=== PATIENT | female | born 1945 | race African-American/Black ===

== ENCOUNTER 2021-12-28 05:31 | Inpatient (IN) | payer MEDICARE, OTHER ==
[2021-12-28] VITALS (9 sets, daily range): BP systolic 150–181; BP diastolic 50–112
[~2021-12-28] VITALS: Ht 172.7 cm; Wt 92.6 kg
[2021-12-28] MEDS ORDERED: NITROGLYCERIN 0.4 MG SL TAB SL ONE ×2 (05:41→06:00)
[2021-12-28 06:43] LABS: Basophils # (auto) 0.1 10 ^3/uL (0-0.2); Basophils % (auto) 0.5 % (0.0-2.0); Eosinophils # (auto) 0.2 10 ^3/uL (0-0.8); Eosinophils % (auto) 1.7 % (0.0-7.0); Hematocrit 36.4 % (36.0-46.0); Hemoglobin 11.6 g/dL (12.2-16.2); Lymphocytes # (auto) 4.7 10 ^3/uL (0.4-5.4); Lymphocytes % (auto) 44.6 % (10.0-50.0); Mean Corpuscular Hemoglobin 27.4 pg (28.0-32.0); Mean Corpuscular Volume 85.5 fL (80.0-100.0); Monocytes # (auto) 0.6 10 ^3/uL (0-1.3); Neutrophils % (auto) 47.2 % (37.0-80.0); Nucleated Red Blood Cells % 0.1 %; Red Blood Cells 4.25 10^6/uL (4.0-5.20); Red Cell Distribution Width 17.4 % (11.8-14.3); White Blood Cell 10.6 10^3/uL (4.4-10.8)
[2021-12-28 07:03] LABS: Albumin 3.5 g/dL (3.4-5.0); Calcium 8.8 mg/dL (8.5-10.1); Magnesium 2.9 mg/dL (1.6-2.6); Potassium 4.2 mmol/L (3.5-5.1)
[2021-12-28 07:04] LABS: INR 1.32 (0.9-1.15); Partial Thromboplastin Time 29.1 sec (23.6-33.0)
[2021-12-28 07:06] LABS: BUN/Creatinine Ratio 16.3; Bilirubin, Total 0.5 mg/dL (0.2-1.0); Total Protein 7.9 g/dL (6.4-8.2)
[2021-12-28] MEDS ORDERED: MORPHINE SULFATE INJ 2 MG/ml SYRG IV PRN ×3 (13:30→17:30)
[2021-12-28] MEDS ORDERED: DEXTROSE (50%) 50ML SYRG IV PRN (13:30)
[2021-12-28] MEDS ORDERED: NITROGLYCERIN 0.4 MG SL TAB SL PRN ×2 (13:30→17:30)
[2021-12-28] MEDS ORDERED: HYDROcodone-ACET 5/325MG TAB PO PRN (15:00)
[2021-12-28] MEDS ORDERED: ONDANSETRON HCL 4 MG/2 ML VIAL IV PRN (15:00)
[2021-12-28] MEDS ORDERED: DOCUSATE SOD 100 MG CAP PO PRN (15:00)
[2021-12-28] MEDS ORDERED: FAMOTIDINE (10MG/ML) 2ML VL IV ONE (15:00)
[2021-12-28] MEDS ORDERED: LORazepam 0.5 MG TAB PO PRN (15:00)
[2021-12-28] MEDS ORDERED: METOPROLOL SUCCINATE XL 50 MG TAB PO ONE (16:15)
[2021-12-28] MEDS: hydrALAZINE HCL 20 MG/ML VL IV PRN (16:37)
[2021-12-28 17:17] LABS: Magnesium 2.7 mg/dL (1.6-2.6); Phosphorus 5.8 mg/dL (2.5-4.90)
[2021-12-28] MEDS: CEFEPIME 2 GM in SODIUM CHL 0.9% 50 ML IV SCH (17:26)
[2021-12-28] MEDS: ACCU-CHEK COMFORT CURVE STRIP VI SCH (17:26)
[2021-12-28] MEDS ORDERED: HEPARIN SODIUM (PORCINE) 5000 UNITS/ML 1ML VIAL IV ONE (17:30)
[2021-12-28] MEDS ORDERED: RIVAROXABAN 15 MG TAB PO SCH (18:00)
[2021-12-28] MEDS: FUROSEMIDE 20 MG/2 ML VIAL IV SCH (18:01)
[2021-12-28] MEDS: HEPARIN DRIP/D5W 100UNITS/ML 250 ML IV SCH (18:05)
[2021-12-28] MEDS: InsuLIN REG 1unit/0.01ml Soln (100units/ml) SC SCH ×2 (18:06→22:00)
[2021-12-28] MEDS ORDERED: ISOS20TA5 PO (18:29)
[2021-12-28] MEDS ORDERED: ACET325T10 PO (18:29)
[2021-12-28] MEDS ORDERED: FURO40TA4 PO (18:29)
[2021-12-28] MEDS ORDERED: SITA100T7 PO (18:29)
[2021-12-28] MEDS ORDERED: ENAL20TA8 PO (18:29)
[2021-12-28] MEDS ORDERED: POTA-167 PO (18:29)
[2021-12-28] MEDS ORDERED: METO1TAB9 PO (18:29)
[2021-12-28] MEDS ORDERED: BENZ100C97 PO (18:29)
[2021-12-28] MEDS ORDERED: IPRATROPIUM BROM 0.5 MG/2.5ML INH SOL NEB SCH (22:45)
[2021-12-28] MEDS ORDERED: LEVALBUTEROL HCL 1.25 MG/3 ML NEB NEB SCH (22:45)
[2021-12-28 23:33] LABS: Urine Bacteria NONE SEEN /hpf (None Seen); Urine Blood 1+ /uL (Negative); Urine Specific Gravity 1.013 (1.001-1.035); Urine WBC 1032 /hpf (0 - 5); Urine WBC Clumps PRESENT /hpf (None Seen)
[2021-12-29] VITALS (14 sets, daily range): BP systolic 93–152; BP diastolic 43–69
[2021-12-29] MEDS: hydrALAZINE HCL 25 MG TAB PO SCH ×3 (00:21→22:00)
[2021-12-29] MEDS: AMIODARONE HCL 200 MG TAB PO SCH ×3 (00:22→22:34)
[2021-12-29] MEDS: ISOSORBIDE MONONITRATE 20 MG TAB PO SCH ×3 (00:24→22:00)
[2021-12-29] MEDS: ACCU-CHEK COMFORT CURVE STRIP VI SCH ×5 (00:25→22:36)
[2021-12-29] MEDS: ACETAMINOPHEN 500 MG TAB PO PRN (00:27)
[2021-12-29 02:48] LABS: INR 1.24 (0.9-1.15)
[2021-12-29 02:53] LABS: Partial Thromboplastin Time > 139.0 sec (23.6-33.0)
[2021-12-29] MEDS: HEPARIN DRIP/D5W 100UNITS/ML 250 ML IV SCH (04:02)
[2021-12-29 05:47] LABS: Basophils # (auto) 0 10 ^3/uL (0-0.2); Basophils % (auto) 0.6 % (0.0-2.0); Eosinophils # (auto) 0.1 10 ^3/uL (0-0.8); Eosinophils % (auto) 0.8 % (0.0-7.0); Hematocrit 30.7 % (36.0-46.0); Hemoglobin 10.1 g/dL (12.2-16.2); Lymphocytes # (auto) 1.7 10 ^3/uL (0.4-5.4); Lymphocytes % (auto) 21.4 % (10.0-50.0); Mean Corpuscular Hemoglobin 27.1 pg (28.0-32.0); Mean Corpuscular Hgb Conc. 32.7 g/dL (32.0-36.0); Mean Corpuscular Volume 82.9 fL (80.0-100.0); Monocytes # (auto) 0.8 10 ^3/uL (0-1.3); Monocytes % (auto) 10.1 % (0.0-12.0); Neutrophils # (auto) 5.2 10 ^3/uL (1.6-8.6); Neutrophils % (auto) 67.1 % (37.0-80.0); Nucleated Red Blood Cells % 0.1 %; Red Blood Cells 3.71 10^6/uL (4.0-5.20); Red Cell Distribution Width 17.5 % (11.8-14.3); White Blood Cell 7.7 10^3/uL (4.4-10.8)
[2021-12-29] MEDS: FUROSEMIDE 20 MG/2 ML VIAL IV SCH ×2 (06:00→17:37)
[2021-12-29 06:10] LABS: Calcium 8.7 mg/dL (8.5-10.1); Magnesium 2.4 mg/dL (1.6-2.6); Potassium 3.7 mmol/L (3.5-5.1); Uric Acid 6.3 mg/dL (2.6-6.0)
[2021-12-29 06:19] LABS: BUN/Creatinine Ratio 18.3; Bilirubin, Total 0.6 mg/dL (0.2-1.0); CRP High Sensitivity 5.02 mg/dL (< 0.3); Phosphorus 3.9 mg/dL (2.5-4.90); Total Protein 6.6 g/dL (6.4-8.2)
[2021-12-29] MEDS: InsuLIN REG 1unit/0.01ml Soln (100units/ml) SC SCH ×4 (07:00→22:00)
[2021-12-29] MEDS: CEFEPIME 2 GM in SODIUM CHL 0.9% 50 ML IV SCH ×2 (08:28→17:37)
[2021-12-29] MEDS: FAMOTIDINE (10MG/ML) 2ML VL IV SCH (09:55)
[2021-12-29] MEDS: ASPirin 81 mg TAB PO SCH (09:55)
[2021-12-29] MEDS: METOPROLOL SUCCINATE XL 50 MG TAB PO SCH (09:57)
[2021-12-29] MEDS ORDERED: ENOXAPARIN SOD 40 MG/0.4 ML SYRINGE SC SCH (10:00)
[2021-12-29 11:34] LABS: INR 1.21 (0.9-1.15)
[2021-12-29 11:39] LABS: Partial Thromboplastin Time > 139.0 sec (23.6-33.0)
[2021-12-29] MEDS ORDERED: ENOXAPARIN SOD 100 MG/1 ML SYRINGE SC ONE ×2 (12:16→12:45)
[2021-12-29 15:22] LABS: Alcohol, Urine < 3.0 mg/dL (0-10); Amphetamine Screen, Urine NEGATIVE (NEGATIVE); Barbiturate Scree,Urine NEGATIVE (NEGATIVE); Benzodiazephine Screen, Urine NEGATIVE (NEGATIVE); Cannabinoid Screen, Urine NEGATIVE (NEGATIVE); Cocaine Screen, Urine NEGATIVE (NEGATIVE); Opiate Scree,Urine NEGATIVE (NEGATIVE); Phencyclidine Screen, Urine NEGATIVE (NEGATIVE)
[2021-12-29] MEDS ORDERED: IOHEXOL 350 MG/ML 100ML IJ ONE (16:31)
[2021-12-29] MEDS: IPRATROPIUM BROM 0.5 MG/2.5ML INH SOL NEB PRN (18:41)
[2021-12-29] MEDS: LEVALBUTEROL HCL 1.25 MG/3 ML NEB NEB PRN (18:41)
[2021-12-29] MEDS: ENOXAPARIN SOD 100 MG/1 ML SYRINGE SC SCH (23:00)
[2021-12-30] VITALS (11 sets, daily range): BP systolic 114–137; BP diastolic 41–61
[2021-12-30] MEDS: CEFEPIME 2 GM in SODIUM CHL 0.9% 50 ML IV SCH ×2 (04:27→16:27)
[2021-12-30 05:01] LABS: Basophils # (auto) 0.1 10 ^3/uL (0-0.2); Basophils % (auto) 0.7 % (0.0-2.0); Eosinophils # (auto) 0.1 10 ^3/uL (0-0.8); Hematocrit 28.3 % (36.0-46.0); Hemoglobin 9.3 g/dL (12.2-16.2); Lymphocytes # (auto) 1.7 10 ^3/uL (0.4-5.4); Lymphocytes % (auto) 23.4 % (10.0-50.0); Mean Corpuscular Hemoglobin 27.2 pg (28.0-32.0); Mean Corpuscular Hgb Conc. 32.8 g/dL (32.0-36.0); Mean Corpuscular Volume 82.8 fL (80.0-100.0); Monocytes # (auto) 0.8 10 ^3/uL (0-1.3); Monocytes % (auto) 10.9 % (0.0-12.0); Neutrophils # (auto) 4.6 10 ^3/uL (1.6-8.6); Nucleated Red Blood Cells % 0.2 %; Red Blood Cells 3.41 10^6/uL (4.0-5.20); Red Cell Distribution Width 17.3 % (11.8-14.3); White Blood Cell 7.3 10^3/uL (4.4-10.8)
[2021-12-30 05:17] LABS: INR 1.16 (0.9-1.15); Partial Thromboplastin Time 44.3 sec (23.6-33.0)
[2021-12-30 05:19] LABS: Albumin 2.7 g/dL (3.4-5.0); BUN/Creatinine Ratio 17.5; Calcium 8.7 mg/dL (8.5-10.1); Magnesium 2.7 mg/dL (1.6-2.6); Potassium 4.1 mmol/L (3.5-5.1)
[2021-12-30 05:22] LABS: Bilirubin, Total 0.5 mg/dL (0.2-1.0); Phosphorus 3.9 mg/dL (2.5-4.90); Total Protein 6.4 g/dL (6.4-8.2)
[2021-12-30] MEDS ORDERED: FUROSEMIDE 40 MG/4 ML VIAL IV SCH (06:00)
[2021-12-30] MEDS: ACCU-CHEK COMFORT CURVE STRIP VI SCH ×4 (06:22→22:00)
[2021-12-30] MEDS: InsuLIN REG 1unit/0.01ml Soln (100units/ml) SC SCH ×4 (06:22→22:00)
[2021-12-30] MEDS: METOPROLOL SUCCINATE XL 50 MG TAB PO SCH (09:51)
[2021-12-30] MEDS: hydrALAZINE HCL 25 MG TAB PO SCH ×2 (09:52→22:00)
[2021-12-30] MEDS: ASPirin 81 mg TAB PO SCH (09:52)
[2021-12-30] MEDS: ISOSORBIDE MONONITRATE 20 MG TAB PO SCH ×2 (09:53→23:16)
[2021-12-30] MEDS: FAMOTIDINE (10MG/ML) 2ML VL IV SCH (09:53)
[2021-12-30] MEDS: LOSARTAN POTASSIUM 50 MG TAB PO SCH (09:54)
[2021-12-30] MEDS: AMIODARONE HCL 200 MG TAB PO SCH (09:55)
[2021-12-30] MEDS: ENOXAPARIN SOD 100 MG/1 ML SYRINGE SC SCH ×2 (09:55→23:16)
[2021-12-30] MEDS ORDERED: FLUCONAZOLE 200MG/100ML 100 ML IV ONE (15:45)
[2021-12-30] MEDS: ACETAMINOPHEN 500 MG TAB PO PRN (22:00)
[2021-12-31] VITALS (8 sets, daily range): BP systolic 112–150; BP diastolic 52–58
[2021-12-31 05:24] LABS: Hematocrit 26.9 % (36.0-46.0); Hemoglobin 8.9 g/dL (12.2-16.2)
[2021-12-31 05:39] LABS: INR 1.12 (0.9-1.15)
[2021-12-31 05:49] LABS: BUN/Creatinine Ratio 21.6; Calcium 8.8 mg/dL (8.5-10.1); Magnesium 2.6 mg/dL (1.6-2.6); Potassium 3.8 mmol/L (3.5-5.1)
[2021-12-31] MEDS: ACCU-CHEK COMFORT CURVE STRIP VI SCH ×4 (07:00→22:00)
[2021-12-31] MEDS: InsuLIN REG 1unit/0.01ml Soln (100units/ml) SC SCH ×4 (07:00→22:53)
[2021-12-31 07:59] LABS: % Iron Saturation 7.8 % (15-50)
[2021-12-31] MEDS: CEFEPIME 2 GM in SODIUM CHL 0.9% 50 ML IV SCH (08:00)
[2021-12-31] MEDS: FLUCONAZOLE 200MG/100ML 100 ML IV SCH (09:33)
[2021-12-31] MEDS: METOPROLOL SUCCINATE XL 50 MG TAB PO SCH (09:33)
[2021-12-31] MEDS: hydrALAZINE HCL 25 MG TAB PO SCH (09:34)
[2021-12-31] MEDS: ISOSORBIDE MONONITRATE 20 MG TAB PO SCH ×2 (09:36→22:36)
[2021-12-31] MEDS: ASPirin 81 mg TAB PO SCH (09:36)
[2021-12-31] MEDS: FAMOTIDINE (10MG/ML) 2ML VL IV SCH (09:37)
[2021-12-31] MEDS: FUROSEMIDE 40 MG/4 ML VIAL IV SCH (09:37)
[2021-12-31] MEDS: LOSARTAN POTASSIUM 50 MG TAB PO SCH (09:37)
[2021-12-31] MEDS: ENOXAPARIN SOD 100 MG/1 ML SYRINGE SC SCH ×2 (09:38→22:31)
[2021-12-31] MEDS ORDERED: methylPREDNISolone SOD SUCC 40 MG/ML VL IV ONE (14:30)
[2021-12-31] MEDS ORDERED: ERGOCALCIFEROL 50,000 UNIT(1.25MG) CAP PO SCH (15:00)
[2021-12-31] MEDS: methylPREDNISolone SOD SUCC 40 MG/ML VL IV SCH (22:34)
[2022-01-01 05:50] VITALS: BP 144/59
[2022-01-01] MEDS: ACCU-CHEK COMFORT CURVE STRIP VI SCH ×4 (07:00→22:17)
[2022-01-01] MEDS: InsuLIN REG 1unit/0.01ml Soln (100units/ml) SC SCH ×4 (07:00→22:39)
[2022-01-01 08:45] LABS: Basophils # (auto) 0 10 ^3/uL (0-0.2); Eosinophils # (auto) 0 10 ^3/uL (0-0.8); Hematocrit 29.7 % (36.0-46.0); Lymphocytes # (auto) 0.4 10 ^3/uL (0.4-5.4); Lymphocytes % (auto) 9.3 % (10.0-50.0); Mean Corpuscular Hemoglobin 27.2 pg (28.0-32.0); Mean Corpuscular Hgb Conc. 32.6 g/dL (32.0-36.0); Mean Corpuscular Volume 83.4 fL (80.0-100.0); Monocytes # (auto) 0.2 10 ^3/uL (0-1.3); Monocytes % (auto) 3.9 % (0.0-12.0); Neutrophils # (auto) 4.1 10 ^3/uL (1.6-8.6); Neutrophils % (auto) 85.8 % (37.0-80.0); Nucleated Red Blood Cells % 0.1 %; Red Blood Cells 3.56 10^6/uL (4.0-5.20); Red Cell Distribution Width 17.4 % (11.8-14.3); White Blood Cell 4.8 10^3/uL (4.4-10.8)
[2022-01-01 08:51] LABS: Hemoglobin 9.7 g/dL (12.2-16.2)
[2022-01-01 08:54] LABS: BUN/Creatinine Ratio 28.8; Calcium 9.5 mg/dL (8.5-10.1); Potassium 4.4 mmol/L (3.5-5.1)
[2022-01-01] MEDS ORDERED: LACTULOSE 20Gm/30ML SOLN PO ONE (11:00)
[2022-01-01] MEDS: FLUCONAZOLE 200MG/100ML 100 ML IV SCH (11:00)
[2022-01-01] MEDS: cefTRIAXone 1GM/50ML D5W 50 ML IV SCH (11:00)
[2022-01-01] MEDS: FUROSEMIDE 40 MG/4 ML VIAL IV SCH (11:02)
[2022-01-01] MEDS: FAMOTIDINE (10MG/ML) 2ML VL IV SCH (11:02)
[2022-01-01] MEDS: methylPREDNISolone SOD SUCC 40 MG/ML VL IV SCH ×2 (11:02→22:15)
[2022-01-01] MEDS: AZITHROMYCIN 500MG/ 250ML 250 ML IV SCH (11:03)
[2022-01-01] MEDS: METOPROLOL SUCCINATE XL 50 MG TAB PO SCH (11:03)
[2022-01-01] MEDS: ENOXAPARIN SOD 100 MG/1 ML SYRINGE SC SCH ×2 (11:08→22:17)
[2022-01-01] MEDS: LOSARTAN POTASSIUM 50 MG TAB PO SCH (11:08)
[2022-01-01] MEDS: ISOSORBIDE MONONITRATE 20 MG TAB PO SCH ×2 (11:41→22:16)
[2022-01-01] MEDS ORDERED: LACTULOSE 20Gm/30ML SOLN PO PRN (12:00)
[2022-01-01 13:00] VITALS: BP 143/54
[2022-01-01 17:00] VITALS: BP 141/50
[2022-01-01 22:00] VITALS: BP 163/66
[2022-01-01] MEDS: DOCUSATE SOD 100 MG CAP PO SCH (22:15)
[2022-01-01] MEDS: ENALAPRIL MALEATE 10 MG TAB PO SCH (22:16)
[2022-01-02 05:00] VITALS: BP 134/48
[2022-01-02] MEDS: ACCU-CHEK COMFORT CURVE STRIP VI SCH ×4 (05:56→21:19)
[2022-01-02] MEDS: InsuLIN REG 1unit/0.01ml Soln (100units/ml) SC SCH ×4 (06:01→21:25)
[2022-01-02 07:15] LABS: BUN/Creatinine Ratio 30.3; Calcium 9.4 mg/dL (8.5-10.1); Potassium 5.2 mmol/L (3.5-5.1)
[2022-01-02 07:36] LABS: Hematocrit 29.1 % (36.0-46.0); Hemoglobin 9.5 g/dL (12.2-16.2)
[2022-01-02 08:30] VITALS: BP 142/54
[2022-01-02] MEDS: FLUCONAZOLE 200MG/100ML 100 ML IV SCH (10:07)
[2022-01-02] MEDS: cefTRIAXone 1GM/50ML D5W 50 ML IV SCH (10:07)
[2022-01-02] MEDS: FAMOTIDINE (10MG/ML) 2ML VL IV SCH (10:08)
[2022-01-02] MEDS: DOCUSATE SOD 100 MG CAP PO SCH ×2 (10:09→22:14)
[2022-01-02] MEDS: FUROSEMIDE 40 MG TAB PO SCH (10:10)
[2022-01-02] MEDS: METOPROLOL SUCCINATE XL 50 MG TAB PO SCH (10:13)
[2022-01-02] MEDS: ISOSORBIDE MONONITRATE 20 MG TAB PO SCH ×2 (10:15→22:15)
[2022-01-02] MEDS: ENOXAPARIN SOD 100 MG/1 ML SYRINGE SC SCH ×2 (10:18→21:26)
[2022-01-02] MEDS: methylPREDNISolone SOD SUCC 40 MG/ML VL IV SCH (10:18)
[2022-01-02] MEDS ORDERED: SODIUM ZIRCONIUM CYCL 10 GM PAK PO ONE (10:45)
[2022-01-02] MEDS: AZITHROMYCIN 500MG/ 250ML 250 ML IV SCH (11:30)
[2022-01-02 12:30] VITALS: BP 136/53
[2022-01-02] MEDS ORDERED: SODIUM CHLORIDE 0.9% 1,000 ML IV ONE (12:30)
[2022-01-02 17:00] VITALS: BP 133/53
[2022-01-02 17:24] LABS: Urine Bacteria FEW /hpf (None Seen); Urine Blood 3+ /uL (Negative); Urine Hyaline Cast FEW /lpf (0 - 2); Urine Specific Gravity 1.014 (1.001-1.035); Urine WBC 37 /hpf (0 - 5)
[2022-01-02] MEDS: SODIUM ZIRCONIUM CYCL 10 GM PAK PO SCH (20:09)
[2022-01-02 22:00] VITALS: BP 144/56
[2022-01-03] MEDS: SODIUM ZIRCONIUM CYCL 10 GM PAK PO SCH ×3 (00:12→14:00)
[2022-01-03 05:00] VITALS: BP 142/54
[2022-01-03] MEDS: InsuLIN REG 1unit/0.01ml Soln (100units/ml) SC SCH ×4 (05:52→22:27)
[2022-01-03] MEDS: ACCU-CHEK COMFORT CURVE STRIP VI SCH ×4 (05:52→22:26)
[2022-01-03 09:00] VITALS: BP 161/61
[2022-01-03] MEDS: cefTRIAXone 1GM/50ML D5W 50 ML IV SCH (10:44)
[2022-01-03] MEDS: predniSONE 20 MG TAB PO SCH (10:45)
[2022-01-03] MEDS: FUROSEMIDE 40 MG TAB PO SCH (10:50)
[2022-01-03] MEDS: ISOSORBIDE MONONITRATE 20 MG TAB PO SCH ×2 (10:50→22:15)
[2022-01-03] MEDS: DOCUSATE SOD 100 MG CAP PO SCH ×2 (10:50→22:15)
[2022-01-03] MEDS: METOPROLOL SUCCINATE XL 50 MG TAB PO SCH (10:51)
[2022-01-03] MEDS: FAMOTIDINE (10MG/ML) 2ML VL IV SCH (10:51)
[2022-01-03] MEDS: ENOXAPARIN SOD 100 MG/1 ML SYRINGE SC SCH ×2 (10:52→22:14)
[2022-01-03] MEDS: FLUCONAZOLE 200MG/100ML 100 ML IV SCH (10:52)
[2022-01-03] MEDS ORDERED: RIV20T PO (10:57)
[2022-01-03] MEDS: AZITHROMYCIN 500MG/ 250ML 250 ML IV SCH (11:58)
[2022-01-03] MEDS: hydrALAZINE HCL 20 MG/ML VL IV PRN (12:07)
[2022-01-03 13:00] VITALS: BP 152/53
[2022-01-03 13:34] LABS: BUN/Creatinine Ratio 32.8; Calcium 8.9 mg/dL (8.5-10.1); Potassium 3.9 mmol/L (3.5-5.1)
[2022-01-03 17:00] VITALS: BP 166/60
[2022-01-03] MEDS: LEVALBUTEROL HCL 1.25 MG/3 ML NEB NEB PRN (18:30)
[2022-01-03] MEDS: IPRATROPIUM BROM 0.5 MG/2.5ML INH SOL NEB PRN (18:30)
[2022-01-03 22:00] VITALS: BP 155/51
[2022-01-03] MEDS: ENALAPRIL MALEATE 10 MG TAB PO SCH (22:16)
[2022-01-04 05:00] VITALS: BP 168/67
[2022-01-04 05:56] LABS: Hematocrit 28.1 % (36.0-46.0); Hemoglobin 9.4 g/dL (12.2-16.2)
[2022-01-04] MEDS: ACCU-CHEK COMFORT CURVE STRIP VI SCH ×2 (06:02→11:47)
[2022-01-04] MEDS: InsuLIN REG 1unit/0.01ml Soln (100units/ml) SC SCH ×2 (06:02→11:47)
[2022-01-04 06:13] LABS: BUN/Creatinine Ratio 39.1; Calcium 8.8 mg/dL (8.5-10.1); Potassium 3.7 mmol/L (3.5-5.1)
[2022-01-04] MEDS: hydrALAZINE HCL 20 MG/ML VL IV PRN (06:55)
[2022-01-04 08:00] VITALS: BP 150/52
[2022-01-04] MEDS: LEVALBUTEROL HCL 1.25 MG/3 ML NEB NEB PRN (10:30)
[2022-01-04] MEDS: IPRATROPIUM BROM 0.5 MG/2.5ML INH SOL NEB PRN (10:30)
[2022-01-04] MEDS: cefTRIAXone 1GM/50ML D5W 50 ML IV SCH (10:53)
[2022-01-04] MEDS: FLUCONAZOLE 200MG/100ML 100 ML IV SCH (10:54)
[2022-01-04] MEDS: FAMOTIDINE (10MG/ML) 2ML VL IV SCH (10:54)
[2022-01-04] MEDS: DOCUSATE SOD 100 MG CAP PO SCH (10:54)
[2022-01-04] MEDS: AZITHROMYCIN 500MG/ 250ML 250 ML IV SCH (10:54)
[2022-01-04] MEDS: predniSONE 20 MG TAB PO SCH (10:54)
[2022-01-04] MEDS: METOPROLOL SUCCINATE XL 50 MG TAB PO SCH (10:55)
[2022-01-04] MEDS: ISOSORBIDE MONONITRATE 20 MG TAB PO SCH (10:55)
[2022-01-04] MEDS: FUROSEMIDE 40 MG TAB PO SCH (10:55)
[2022-01-04] MEDS: ENALAPRIL MALEATE 10 MG TAB PO SCH (10:56)
[2022-01-04] MEDS: ENOXAPARIN SOD 100 MG/1 ML SYRINGE SC SCH (10:56)
[2022-01-04 12:00] VITALS: BP 156/57
[2022-01-04] MEDS ORDERED: PRED20TA2 PO (12:40)
[2022-01-04] MEDS ORDERED: ALBUAER3 IN (12:40)
[2022-01-04] MEDS ORDERED: FLUC200T35 PO (12:43)
[2022-01-04] MEDS ORDERED: DOXY-286 PO (12:43)
[2022-01-04] MEDS ORDERED: CHOL20007 PO (12:43)
[2022-01-04] MEDS ORDERED: FURO40TA4 PO (12:47)
[2022-01-04] MEDS ORDERED: RIV20T PO (12:47)
[2022-01-04] MEDS ORDERED: DOCU-94 PO (12:47)
[2022-01-04] MEDS ORDERED: FAMO20TA10 PO (12:53)
[2022-01-04] MEDS ORDERED: FER325T PO (12:57)
[2022-01-04] MEDS ORDERED: PANT40TA2 PO (12:58)
== END 2022-01-04 15:30 | disposition home health service (06) | DRG 280 ==
LOC: EDBD 05:31 → ER 05:31 → TELE 13:25 → TELE-EAST 15:28 → DOU IN ICU 17:20 → TELE-CENTR 12-31 20:10
PROVIDERS: ADMIT Hospitalist; ATTEND Internal Medicine
DX: I13.0 Hypertensive heart and chronic kidney disease with heart failure and stage 1 through stage 4 chronic kidney disease, or unspecified chronic kidney disease (principal); J18.9 Pneumonia, unspecified organism; I21.A1 Myocardial infarction type 2; J96.01 Acute respiratory failure with hypoxia; N17.0 Acute kidney failure with tubular necrosis; I50.43 Acute on chronic combined systolic (congestive) and diastolic (congestive) heart failure; J44.1 Chronic obstructive pulmonary disease with (acute) exacerbation; J44.0 Chronic obstructive pulmonary disease with (acute) lower respiratory infection; J91.8 Pleural effusion in other conditions classified elsewhere; I82.411 Acute embolism and thrombosis of right femoral vein; B37.49 Other urogenital candidiasis; E11.22 Type 2 diabetes mellitus with diabetic chronic kidney disease; E78.5 Hyperlipidemia, unspecified; I48.0 Paroxysmal atrial fibrillation; D64.9 Anemia, unspecified; N18.31 Chronic kidney disease, stage 3a; I16.0 Hypertensive urgency; Z20.822 Contact with and (suspected) exposure to COVID-19; K75.81 Nonalcoholic steatohepatitis (NASH); D63.8 Anemia in other chronic diseases classified elsewhere; E55.9 Vitamin D deficiency, unspecified; I27.20 Pulmonary hypertension, unspecified; K59.00 Constipation, unspecified; I25.10 Atherosclerotic heart disease of native coronary artery without angina pectoris; I50.82 Biventricular heart failure; Y95 Nosocomial condition; Z79.01 Long term (current) use of anticoagulants; Z86.718 Personal history of other venous thrombosis and embolism; Z95.1 Presence of aortocoronary bypass graft
CPT/HCPCS: 36415; 36600; 71045; 71250; 71275; 76775; 80048; 80053; 80061; 80307; 81001; 82270; 82306; 82550; 82728; 82805; 82962; 83036; 83540; 83550; 83615; 83690; 83735; 83880; 84100; 84156; 84443; 84484; 84550; 85014; 85018; 85025; 85379; 85610; 85652; 85730; 86141; 87040; 87081; 87086; 87088; 93005; 93306; 93970; 94640; 94660; 97110; 97116; 97163; 97530; 99291; G0378; J0696; J1450; J1815; J3490